=== PATIENT | female | born 1970 | race Caucasian/White ===

== ENCOUNTER → 2016-12-09 09:44 | Emergency (ER) | payer MEDICAID ==
[~2016-12-09 09:44] MED LIST: Metoclopramide IV* 5 MG/ML 2 ML VIAL IV ONE; Morphine INJ* 4 MG/ML 1 ML SYRINGE IV ONE; NS 0.9% 1000 ML* 1,000 ML IV ONE; Ondansetron INJ* 2 MG/ML VIAL IV ONE; Potassium Chlor TAB* 20 MEQ TAB.ER PO ONE
[2016-12-09] MEDS: NS 0.9% 1000 ML* 2,000 ML IV ONE ×2 (11:03→13:12)
[2016-12-09 11:36] LABS: Hematocrit 37 % (35-47); Hemoglobin 12.4 g/dl (12.0-16.0); Mean Corpuscular HGB Conc 34 g/dl (31-36); Mean Corpuscular Hemoglobin 28 pg (27-31); Mean Corpuscular Volume 84 fL (80-97); Mean Platelet Volume 8 um3 (7.4-10.4); Red Blood Count 4.39 10^6/ul (4.0-5.4); Red Cell Distribution Width 16 % (10.5-15); White Blood Count 8.6 10^3/ul (3.5-10.8)
[2016-12-09 11:54] LABS: Albumin 4.4 g/dL (3.2-5.2); BUN/Creatinine Ratio 24.1 (8-20); C Reactive Protein 25.28 mg/L (< 5.00); Calcium 10.3 mg/dL (8.6-10.3); EGFR African American 100.8 (>60); EGFR Non-African American 78.3 (>60); Globulin 4.1 g/dL (2-4); Potassium 3.2 mmol/L (3.5-5.0); Total Bilirubin 0.6 mg/dL (0.2-1.0); Total Protein 8.5 g/dL (6.4-8.9)
[2016-12-09 12:55] LABS: Urine Bacteria Absent (Absent); Urine Bilirubin Negative (Negative); Urine Glucose Negative (Negative); Urine Nitrite Negative (Negative)
[2016-12-09 13:56] VITALS: BP 156/76
--- NOTE | 2016-12-13 10:52 | ED ---
Dora Chan Thomas, scribed for Sherman Mckeon MD on 12/09/16 at 1053 . Abdominal Pain/Female - HPI Summary HPI Summary: Pt is a 46 y/o F with a Hx of chemotherapy presents to the ED with severe vomiting. Sx began 24 hours ago and she is unable to keep food or fluids down. Additionally c/o abd pain, diarrhea, myalgia, chillls, palpitations (racing heart), and dry cough. She has a Hx of breast cancer with mets to lymph nodes, spine, and liver. Her last chemotherapy was 2 weeks ago and reports nausea -- nml per pt -- but this with this episode also has vomiting. She attributes her diarrhea to a "double dose" of milk of magnesia following constipation that lasted five days. - History of Current Complaint Chief Complaint: EDAbdPain Stated Complaint: VOMITING, ABD PAIN, Time Seen by Provider: 12/09/16 09:58 Hx Obtained From: Patient Hx Last Menstrual Period: last year stopped after chemo ?: No Timing: Hours - 24 hours Severity Initially: Moderate Severity Currently: Moderate Pain Intensity: 7 Pain Scale Used: 0-10 Numeric Radiates: No Aggravating Factor(s): Food Alleviating Factor(s): Nothing Associated Signs and Symptoms: Positive: Cough - cough, Nausea, Vomiting, Diarrhea, Other: - POS: myalgia, palpitations ("racing heart") Allergies/Adverse Reactions: Allergies Allergy/AdvReac Type Severity Reaction Status Date / Time No Known Allergies Allergy Verified 12/10/16 13:16 Home Medications: Home Medications Morphine TAB (NF) [Morphine 30 MG TAB (NF)] 30 mg PO Q4HR PRN 12/09/16 [History Confirmed 12/09/16] PMH/Surg Hx/FS Hx/Imm Hx Endocrine/Hematology History: Reports: Hx Anemia - MANY TIMES IN HER LIFE Denies: Hx Blood Disorders, Hx Blood Transfusions, Hx Diabetes, Hx Systemic Lupus Erythematosus, Hx Thyroid Disease Cardiovascular History: Reports: Hx Hypercholesterolemia Denies: Hx Congestive Heart Failure, Hx Hypertension, Hx Pacemaker/ICD Comment Only: Other Cardiovascular Problems/Disorders - HX PLEURISY Respiratory History: Reports: Other Respiratory Problems/Disorders - PLEURISY 04/2012, Sx RESOVED EXCEPT MILD DULL DISCOMFORT LEFT POSTERIOR CH Denies: Hx Asthma, Hx Chronic Obstructive Pulmonary Disease (COPD) GI History: Reports: Hx Gastroesophageal Reflux Disease - NO Sx SINCE HAVING HIATAL HERNIA REPAIRED 2009, Hx Hiatal Hernia - SURGERY 2009, Hx Ulcer - bleeding gastric ulcer history, Other GI Disorders - hiatial hernia repair History: Denies: Hx Dialysis, Hx Renal Disease Musculoskeletal History: Reports: Other Musculoskeletal History - back pain, ca of spine Denies: Hx Rheumatoid Arthritis Sensory History: Denies: Hx Contacts or Glasses, Hx Hearing Aid Opthamlomology History: Denies: Hx Contacts or Glasses Neurological History: Reports: Hx Headaches Psychiatric History: Reports: Hx Anxiety - TAKES KLONOPIN PRN, USUALLY 1-2/WK, Hx Depression Denies: Hx Panic Disorder - Cancer History Cancer Type, Location and Year: BREAST CANCER WITH METS TO SPINE Hx Chemotherapy: Yes Hx Radiation Therapy: Yes - DX OF BONE CANCER IN SPINE 2 YRS AGO, ADDITIONAL RADIATION - Surgical History Surgery Procedure, Year, and Place: LYMPH NODES-REMOVED RIGHT BREAST-BILATERAL CARPAL TUNNEL-LEFT ANKLE FX PINS REMOVED-RIGHT BREAST LUMPECTOMY 10/01-PORT PLACEMENT AND REMOVAL-NEW PORT PLACED-HYSTERECTOMY 06/03-HIATAL HERNIA REPAIR 2008-BIOPSY LYMPH NODES IN CHEST CAVITY Hx Anesthesia Reactions: Yes - 2008 DURING H.H. REPAIR, STOPPED PROCEDURE Infectious Disease History: Denies: Hx Clostridium Difficile, Hx Hepatitis, Hx Human Immunodeficiency Virus (HIV), Hx of Known/Suspected MRSA, Hx Shingles, Hx Tuberculosis, Hx Known/ Suspected VRE, Hx Known/Suspected VRSA, History Other Infectious Disease, Traveled Outside the [place] in Last 30 Days - Family History Known Family History: Positive: Cardiac Disease, Other - CA, lung - Social History Alcohol Use: None Alcohol Amount: 1-4 on a drinking day every few weeks Substance Use Type: Reports: None Smoking Status (MU): Former Smoker Type: eCigarettes Amount Used/How Often: smokes ecigarettes without nicotine Have You Smoked in the Last Year: Yes - ecig Review of Systems Positive: Chills Eyes: Negative ENT: Negative Positive: Palpitations - ("heart racing") Positive: Cough - dry Positive: Abdominal Pain, Vomiting, Diarrhea, Nausea Genitourinary: Negative Positive: Myalgia Skin: Negative Neurological: Negative Psychological: Normal All Other Systems Reviewed And Are Negative: Yes Physical Exam - Summary Physical Exam Summary: VITAL SIGNS: Reviewed. GENERAL: Patient is a well-developed female who is lying comfortable in the stretcher. Patient is not in any acute respiratory distress. HEAD AND FACE: Normocephalic and atraumatic. EYES: PERRLA, EOMI x 2, No injected conjunctiva. EARS: Hearing grossly intact. Ear canals and tympanic membranes are WNL. MOUTH: Oropharynx within normal limits. NECK: Supple, trachea is midline, no adenopathy, no JVD. CHEST: Symmetric, no tenderness at palpation LUNGS: Clear to auscultation bilaterally. No wheezing or crackles. CVS: RRR, S1 and S2 present, no murmurs or gallops appreciated. ABDOMEN: Soft, non-tender. No signs of distention. Positive bowel sounds. No rebound no guarding, and no masses palpated. No abdominal bruit or pulsations. EXTREMITIES: FROM in all major joints, no edema, no cyanosis or clubbing. NEURO: Alert and oriented x 3. No acute neurological deficits. Speech is normal. SKIN: Dry and warm Triage Information Reviewed: Yes Vital Signs On Initial Exam: Initial Vitals Temp Pulse Resp BP Pulse Ox 98.3 F 87 18 127/76 99 12/09/16 09:47 12/09/16 09:47 12/09/16 09:47 12/09/16 09:47 12/09/16 09:47 Vital Signs Reviewed: Yes Diagnostics - Vital Signs Vital Signs Temp Pulse Resp BP Pulse Ox 12/09/16 09:47 98.3 F 87 18 127/76 99 - Laboratory Lab Results: Lab Results 12/09/16 12/09/16 12/09/16 Range/Units 11:12 11:12 11:12 WBC 8.6 (3.5-10.8) 10^3/ul RBC 4.39 (4.0-5.4) 10^6/ul Hgb 12.4 (12.0-16.0) g/dl Hct 37 (35-47) % MCV 84 (80-97) fL MCH 28 (27-31) pg MCHC 34 (31-36) g/dl RDW 16 H (10.5-15) % Plt Count 328 (150-450) 10^3/ul MPV 8 (7.4-10.4) um3 Neut % (Auto) 78.6 (38-83) % Lymph % (Auto) 12.7 L (25-47) % [place] % (Auto) 8.5 (1-9) % Eos % (Auto) 0 (0-6) % Baso % (Auto) 0.2 (0-2) % Absolute Neuts (auto) 6.8 (1.5-7.7) 10^3/ul Absolute Lymphs (auto) 1.1 (1.0-4.8) 10^3/ul Absolute Monos (auto) 0.7 (0-0.8) 10^3/ul Absolute Eos (auto) 0 (0-0.6) 10^3/ul Absolute Basos (auto) 0 (0-0.2) 10^3/ul Absolute Nucleated RBC 0.01 10^3/ul Nucleated RBC % 0.1 Sodium 133 (133-145) mmol/L Potassium 3.2 L (3.5-5.0) mmol/L Chloride 93 L (101-111) mmol/L Carbon Dioxide 27 (22-32) mmol/L Anion Gap 13 H (2-11) mmol/L BUN 19 (6-24) mg/dL Creatinine 0.79 (0.51-0.95) mg/dL Est GFR ( Amer) 100.8 (>60) Est GFR (Non-Af Amer) 78.3 (>60) BUN/Creatinine Ratio 24.1 H (8-20) Glucose 102 H (70-100) mg/dL Lactic Acid 1.3 (0.5-2.0) mmol/L Calcium 10.3 (8.6-10.3) mg/dL Magnesium 2.0 (1.9-2.7) mg/dL Total Bilirubin 0.60 (0.2-1.0) mg/dL AST 93 H (13-39) U/L ALT 36 (7-52) U/L Alkaline Phosphatase 205 H (34-104) U/L C-Reactive Protein 25.28 H (< 5.00) mg/L Total Protein 8.5 (6.4-8.9) g/dL Albumin 4.4 (3.2-5.2) g/dL Globulin 4.1 H (2-4) g/dL Albumin/Globulin Ratio 1.1 (1-3) Amylase 66 (29-103) U/L Lipase 56 (11.0-82.0) U/L Urine Color Urine Appearance Urine pH (5-9) Ur Specific [place] (1.010-1.030) Urine Protein (Negative) Urine Ketones (Negative) Urine Blood (Negative) Urine Nitrate (Negative) Urine Bilirubin (Negative) Urine Urobilinogen (Negative) Ur Leukocyte Esterase (Negative) Urine WBC (Auto) (Absent) Urine RBC (Auto) (Absent) Urine Bacteria (Absent) Hyaline Casts (Absent) Urine Glucose (Negative) 12/09/16 Range/Units 12:25 WBC (3.5-10.8) 10^3/ul RBC (4.0-5.4) 10^6/ul Hgb (12.0-16.0) g/dl Hct (35-47) % MCV (80-97) fL MCH (27-31) pg MCHC (31-36) g/dl RDW (10.5-15) % Plt Count (150-450) 10^3/ul MPV (7.4-10.4) um3 Neut % (Auto) (38-83) % Lymph % (Auto) (25-47) % [place] % (Auto) (1-9) % Eos % (Auto) (0-6) % Baso % (Auto) (0-2) % Absolute Neuts (auto) (1.5-7.7) 10^3/ul Absolute Lymphs (auto) (1.0-4.8) 10^3/ul Absolute Monos (auto) (0-0.8) 10^3/ul Absolute Eos (auto) (0-0.6) 10^3/ul Absolute Basos (auto) (0-0.2) 10^3/ul Absolute Nucleated RBC 10^3/ul Nucleated RBC % Sodium (133-145) mmol/L Potassium (3.5-5.0) mmol/L Chloride (101-111) mmol/L Carbon Dioxide (22-32) mmol/L Anion Gap (2-11) mmol/L BUN (6-24) mg/dL Creatinine (0.51-0.95) mg/dL Est GFR ( Amer) (>60) Est GFR (Non-Af Amer) (>60) BUN/Creatinine Ratio (8-20) Glucose (70-100) mg/dL Lactic Acid (0.5-2.0) mmol/L Calcium (8.6-10.3) mg/dL Magnesium (1.9-2.7) mg/dL Total Bilirubin (0.2-1.0) mg/dL AST (13-39) U/L ALT (7-52) U/L Alkaline Phosphatase (34-104) U/L C-Reactive Protein (< 5.00) mg/L Total Protein (6.4-8.9) g/dL Albumin (3.2-5.2) g/dL Globulin (2-4) g/dL Albumin/Globulin Ratio (1-3) Amylase (29-103) U/L Lipase (11.0-82.0) U/L Urine Color Yellow Urine Appearance Clear Urine pH 6.0 (5-9) Ur Specific [place] 1.019 (1.010-1.030) Urine Protein 2+(100 mg/dl) H (Negative) Urine Ketones 2+ H (Negative) Urine Blood Negative (Negative) Urine Nitrate Negative (Negative) Urine Bilirubin Negative (Negative) Urine Urobilinogen Negative (Negative) Ur Leukocyte Esterase Negative (Negative) Urine WBC (Auto) Trace(0-5/hpf) (Absent) Urine RBC (Auto) 2+(6-10/hpf) H (Absent) Urine Bacteria Absent (Absent) Hyaline Casts Present H (Absent) Urine Glucose Negative (Negative) Result Diagrams: 12/09/16 11:12 12/09/16 11:12 Lab Statement: Any lab studies that have been ordered have been reviewed, and results considered in the medical decision making process. Abdominal Pain Fem Course/Dx - Course Course Of Treatment: The patient is a 46 y/o F with a Hx of chemotherapy presenting to the ED with severe vomiting. Her symptoms began 24 hours ago and she is unable to keep food or fluids down. Additionally she complains of abd pain, diarrhea, myalgia, chills, palpitations (described as racing heart), and dry cough. She has a Hx of breast cancer with mets to lymph nodes, spine, and liver. Her last chemotherapy was 2 weeks ago and reports nausea -- nml per pt -- but this with this episode also has vomiting. She attributes her diarrhea to a "double dose" of milk of magnesia following constipation that lasted five days. Test results were within normal limits except potassium 3.2, CRP 25.28. UA did not show UTI. In the ED course, the patient was given 2L of IV fluids, Zofran, and Reglan. The patient symptoms have improved, however still slightly nauseous. The case was discussed with Dr. Ngo from oncology, who recommended that the patient be discharged to his office. He will reassess patient and make a decision to send the patient home or admit. The plan was discussed with the patient, who agrees and understands. Therefore, the patient was discharged. - Diagnoses Differential Diagnosis: Positive: Constipation, Diverticulitis, Irritable Bowel Syndrome Provider Diagnoses: Nausea & vomiting - Provider Notifications Discussed Care Of Patient With: Paulo Ngo Time Discussed With Above Provider: 13:10 - Oncology, recommended that the patient visit his office today. Instructed by Provider To: Other Discharge - Discharge Plan Condition: Stable Disposition: OTHER Discharge Disposition Comment: Dr. Ngo office Patient Education Materials: Acute Nausea and Vomiting (ED) Referrals: Fredi Ceja MD [Primary Care Provider] - Paulo Ngo MD [Medical Doctor] - (PLEASE SEE DR. NGO IN HIS OFFICE TODAY.) The documentation as recorded by the Dora osullivan Thomas accurately reflects the service I personally performed and the decisions made by me, Sherman Mckeon MD.
== END ==
LOC: ED 09:44
DX: R11.2 Nausea with vomiting, unspecified (principal); R05 Cough; R19.7 Diarrhea, unspecified; R00.2 Palpitations
CPT/HCPCS: 36415; 80053; 81003; 81015; 82150; 83605; 83690; 83735; 85025; 86140; 96374; 96375; 99283; A9270-GY; J2270; J2405

== ENCOUNTER 2016-12-09 14:00 | Inpatient (IN) | payer MEDICAID ==
[2016-12-09] MEDS ORDERED: Polyethylene Glycol 3350* 17 GM PACKET PO PRN (15:47)
[2016-12-09] MEDS ORDERED: Morphine ORAL.SOLN 10 mg* 2 MG/ML UDC 5 ml PO PRN (15:49)
[2016-12-09] MEDS ORDERED: clonazePAM TAB(*) 0.5 MG PO PRN (15:49)
[2016-12-09] MEDS ORDERED: oxyCODONE TAB* 5 MG TAB PO PRN (15:50)
[2016-12-09] MEDS: Metoclopramide IV* 5 MG/ML 2 ML VIAL IV SCH ×2 (16:35→23:15)
[2016-12-09] MEDS: Enoxaparin(*) 40 MG/0.4 ML SYR SUBCUT SCH (16:35)
[2016-12-09] MEDS: Ondansetron INJ* 2 MG/ML VIAL IV SCH ×2 (16:35→20:43)
[2016-12-09] MEDS: NS 0.9% w/ 20 Meq KCL 1000 ML* 1,000 ML IV SCH (16:35)
[2016-12-09] MEDS: LORazepam INJ* 2 MG/ML 1 ML VIAL IV PUSH PRN (19:41)
[2016-12-09] MEDS: Morphine INJ* 10 MG/ML 1 ML SYRINGE IV PRN (20:06)
[2016-12-10] MEDS: Ondansetron INJ* 2 MG/ML VIAL IV SCH ×6 (00:24→19:15)
[2016-12-10] MEDS: Metoclopramide IV* 5 MG/ML 2 ML VIAL IV SCH ×4 (04:01→21:23)
[2016-12-10] MEDS: Morphine INJ* 10 MG/ML 1 ML SYRINGE IV PRN ×3 (05:28→19:15)
[2016-12-10 06:04] LABS: Hematocrit 33 % (35-47); Hemoglobin 10.9 g/dl (12.0-16.0); Mean Corpuscular HGB Conc 33 g/dl (31-36); Mean Corpuscular Hemoglobin 28 pg (27-31); Mean Corpuscular Volume 86 fL (80-97); Mean Platelet Volume 7 um3 (7.4-10.4); Red Blood Count 3.84 10^6/ul (4.0-5.4); Red Cell Distribution Width 17 % (10.5-15); White Blood Count 6.2 10^3/ul (3.5-10.8)
[2016-12-10 06:28] LABS: Albumin 3.6 g/dL (3.2-5.2); BUN/Creatinine Ratio 14.6 (8-20); Calcium 8.6 mg/dL (8.6-10.3); EGFR African American 96.5 (>60); EGFR Non-African American 75.1 (>60); Globulin 3.4 g/dL (2-4); Potassium 3.8 mmol/L (3.5-5.0); Total Bilirubin 0.5 mg/dL (0.2-1.0)
[2016-12-10] MEDS: NS 0.9% w/ 20 Meq KCL 1000 ML* 1,000 ML IV SCH ×2 (08:05→21:21)
[2016-12-10] MEDS: LORazepam INJ* 2 MG/ML 1 ML VIAL IV PUSH PRN ×2 (13:00→19:36)
[2016-12-10] MEDS ORDERED: Iohexol 300* (CONTRAST) 10 ML SDV IV ONE (13:15)
--- NOTE | 2016-12-10 13:57 | RAD ---
Indication: Liver metastases. Nausea and vomiting with abdominal pain. Contrast: Administered 60.1 ml of OMNIPAQUE 300 mg/ml. CT of the abdomen and pelvis was performed after oral and IV contrast administration. Coronal and sagittal reconstructed images were obtained. Lung bases demonstrate right pleural effusion. Heart demonstrates no pericardial effusion. The liver is is enlarged. Multiple enhancing lesions are noted consistent with metastatic disease in both lobes of the liver. The lesion in the dome of the liver has slightly increased in size. Innumerable other ring-enhancing lesions are noted in both lobes of the liver consistent with metastatic disease. This appears to BE slightly progressive when compared to previous exam. Gallbladder demonstrates no calcified gallstones. Small amount of pericholecystic fluid is identified. Spleen is normal in size. Pancreas demonstrates no mass or pancreatic duct dilatation. Common duct is not dilated. No adrenal lesions. The kidneys demonstrate symmetric nephrograms without hydronephrosis. Atherosclerotic aorta is noted. Interaortocaval lymph node measures up to 7 mm, left para-aortic lymph node measures up to 7 mm. This may be more prominent than on previous exam. Atherosclerotic aorta is noted. Small amount of free fluid is noted in the cul-de-sac. Small bowel demonstrates no abnormal dilatation. The colon is filled with stool. Diverticulosis without definite evidence of diverticulitis is noted. No hernias are noted. The stomach is partially collapsed. The bony structures demonstrate sclerotic lesions at multiple levels including L5, L2 and T12. This is consistent with bony metastatic disease. IMPRESSION: Progressive bilobar liver hepatic metastases. Increasing ascites and right pleural effusion is noted of small size. Extensive bony metastasis. No abnormally dilated loops of bowel are noted.
[2016-12-10] MEDS: Enoxaparin(*) 40 MG/0.4 ML SYR SUBCUT SCH (15:41)
[2016-12-11] MEDS: Morphine INJ* 10 MG/ML 1 ML SYRINGE IV PRN ×4 (00:50→21:38)
[2016-12-11] MEDS: Ondansetron INJ* 2 MG/ML VIAL IV SCH ×7 (00:52→23:54)
[2016-12-11] MEDS: Metoclopramide IV* 5 MG/ML 2 ML VIAL IV SCH ×4 (04:25→21:38)
[2016-12-11] MEDS: LORazepam INJ* 2 MG/ML 1 ML VIAL IV PUSH PRN ×2 (04:55→19:30)
[2016-12-11 06:33] LABS: Hematocrit 30 % (35-47); Mean Corpuscular HGB Conc 33 g/dl (31-36); Mean Corpuscular Hemoglobin 28 pg (27-31); Mean Corpuscular Volume 86 fL (80-97); Mean Platelet Volume 8 um3 (7.4-10.4); Red Blood Count 3.53 10^6/ul (4.0-5.4); Red Cell Distribution Width 17 % (10.5-15); White Blood Count 4.6 10^3/ul (3.5-10.8)
[2016-12-11 06:48] LABS: Albumin 3.3 g/dL (3.2-5.2); BUN/Creatinine Ratio 10.4 (8-20); Calcium 8.2 mg/dL (8.6-10.3); EGFR African American 103.8 (>60); EGFR Non-African American 80.7 (>60); Potassium 3.6 mmol/L (3.5-5.0); Total Bilirubin 0.4 mg/dL (0.2-1.0); Total Protein 6.3 g/dL (6.4-8.9)
--- NOTE | 2016-12-11 11:04 | PN ---
Progress Note - Progress Note SOAP: Subjective: still very nauseous. no vomiting, but only drinking ensure clears. interested in trying to advance her diet. +hiccups. no headaches but increased ocular migraines. Objective: Vital Signs Temp Pulse Resp BP Pulse Ox 97.6 F 84 16 103/77 99 12/11/16 04:06 12/11/16 04:06 12/11/16 06:16 12/11/16 04:06 12/11/16 04:06 perr eomi op moist CTA bl s1 s2 nl soft palpable tumor RUQ, tender no le edema A+O x 3, nonfocal neurological exam Laboratory Results - last 24 hr 12/11/16 12/11/16 05:10 05:10 WBC 4.6 RBC 3.53 L Hgb 10.0 L Hct 30 L MCV 86 MCH 28 MCHC 33 RDW 17 H Plt Count 226 MPV 8 Neut % (Auto) 63.4 Lymph % (Auto) 25.3 [place] % (Auto) 10.1 H Eos % (Auto) 0.6 Baso % (Auto) 0.6 Absolute Neuts (auto) 2.9 Absolute Lymphs (auto) 1.2 Absolute Monos (auto) 0.5 Absolute Eos (auto) 0 Absolute Basos (auto) 0 Absolute Nucleated RBC 0.01 Nucleated RBC % 0.1 Sodium 132 L Potassium 3.6 Chloride 103 Carbon Dioxide 24 Anion Gap 5 BUN 8 Creatinine 0.77 Est GFR ( Amer) 103.8 Est GFR (Non-Af Amer) 80.7 BUN/Creatinine Ratio 10.4 Glucose 85 Calcium 8.2 L Total Bilirubin 0.40 AST 59 H ALT 26 Alkaline Phosphatase 133 H Total Protein 6.3 L Albumin 3.3 Globulin 3.0 Albumin/Globulin Ratio 1.1 Clonazepam (Klonopin Tab(*)) 0.5 mg PO TID PRN PRN Reason: AGITATION/ANXIETY/INSOMNIA Enoxaparin Sodium (Lovenox(*)) 40 mg SUBCUT Q24H MYRA Last Admin: 12/10/16 15:41 Dose: 40 mg Heparin Sodium (Porcine) (Heparin Flush Port (Ivad)) 5 ml FLUSH DAILY MYRA PRN Reason: Protocol Last Admin: 12/11/16 08:40 Dose: Not Given Potassium Chloride/Sodium Chloride (Ns 0.9% W/ 20 Meq Kcl 1000 Ml*) 1,000 mls @ 75 mls/hr IV PER RATE [facility] Last Admin: 12/10/16 21:21 Dose: 75 mls/hr Famotidine 20 mg/ Sodium (Chloride) 102 mls @ 408 mls/hr IVPB DAILY [facility] Last Admin: 12/11/16 08:46 Dose: 408 mls/hr Lorazepam (Ativan Inj*) 0.5 mg IV PUSH Q4H PRN PRN Reason: Nausea/Vomiting, intractable Last Admin: 12/11/16 04:55 Dose: 0.5 mg Metoclopramide HCl (Reglan Iv*) 10 mg IV Q6H MYRA Last Admin: 12/11/16 08:46 Dose: 10 mg Morphine Sulfate (Morphine Oral.Soln 10 Mg*) 30 mg PO Q4H PRN PRN Reason: PAIN Morphine Sulfate (Morphine Inj (Syringe)*) 5 mg IV Q6H PRN PRN Reason: PAIN Last Admin: 12/11/16 06:16 Dose: 5 mg Ondansetron HCl (Zofran Inj*) 4 mg IV Q4H [facility] Last Admin: 12/11/16 08:46 Dose: 4 mg Oxycodone HCl (Roxycodone Tab*) 10 mg PO Q4H PRN PRN Reason: PAIN Polyethylene Glycol/Electrolytes (Miralax*) 17 gm PO 0800,2100 PRN PRN Reason: CONSTIPATION Assessment: 46 yo F w metastatic breast cancer on palliative Doxil admitted with nausea and vomiting. Her CT, which I have personally reviewed, does show progression of her disease. It is not marked, however one would have hoped for some regression of her liver mets from two cycles rather than growth. In terms of her nausea and vomiting, it may very well be the metastatic abdominal disease, with irritation of her diaphragm, however I am concerned that this could be [employer] disease. Plan: -MRI of the brain in the am (had IV contrast yesterday) -advance diet per her request -cont current antiemetics -cont IVFs with kcl (hyponatremia likely related to GI loss) -lovenox DVT prophylaxis
[2016-12-11] MEDS: NS 0.9% w/ 20 Meq KCL 1000 ML* 1,000 ML IV SCH (12:38)
[2016-12-11] MEDS: Enoxaparin(*) 40 MG/0.4 ML SYR SUBCUT SCH (16:20)
[2016-12-12] MEDS: NS 0.9% w/ 20 Meq KCL 1000 ML* 1,000 ML IV SCH (01:52)
[2016-12-12] MEDS: Ondansetron INJ* 2 MG/ML VIAL IV SCH ×2 (03:55→08:28)
[2016-12-12] MEDS: Metoclopramide IV* 5 MG/ML 2 ML VIAL IV SCH ×2 (04:14→09:47)
[2016-12-12] MEDS: Morphine INJ* 10 MG/ML 1 ML SYRINGE IV PRN (04:15)
[2016-12-12 04:26] LABS: Hematocrit 32 % (35-47); Hemoglobin 10.3 g/dl (12.0-16.0); Mean Corpuscular HGB Conc 33 g/dl (31-36); Mean Corpuscular Hemoglobin 28 pg (27-31); Mean Corpuscular Volume 86 fL (80-97); Mean Platelet Volume 7 um3 (7.4-10.4); Red Blood Count 3.69 10^6/ul (4.0-5.4); Red Cell Distribution Width 17 % (10.5-15); White Blood Count 4.8 10^3/ul (3.5-10.8)
[2016-12-12 04:37] LABS: Albumin 3.3 g/dL (3.2-5.2); BUN/Creatinine Ratio 9.2 (8-20); Calcium 8.5 mg/dL (8.6-10.3); EGFR African American 105.4 (>60); EGFR Non-African American 81.9 (>60); Globulin 3.2 g/dL (2-4); Total Bilirubin 0.3 mg/dL (0.2-1.0); Total Protein 6.5 g/dL (6.4-8.9)
[2016-12-12] MEDS ORDERED: Famotidine IV* 10 MG/ML 2 ML (20 mg) ONE (08:16)
[2016-12-12] MEDS: LORazepam INJ* 2 MG/ML 1 ML VIAL IV PUSH PRN ×2 (08:51→15:50)
[2016-12-12] MEDS ORDERED: Ondansetron INJ* 2 MG/ML VIAL IV PRN (10:13)
--- NOTE | 2016-12-12 11:20 | PN ---
Progress Note - Progress Note SOAP: Subjective: []Continued nausea without vomiting. Meds work. Very anxious about potential home today as she is worried. Remains very cheerful. MRI due today @ 3pm d/t contrast from CT can't do in AM. Denies headaches and vision changes. Still very full stomach. Last BM Mon. 12/02 (/c MOM), though low intake since. Did tolerate soft foods today. Medications: Clonazepam (Klonopin Tab(*)) 0.5 mg PO TID PRN PRN Reason: AGITATION/ANXIETY/INSOMNIA Enoxaparin Sodium (Lovenox(*)) 40 mg SUBCUT Q24H MYRA Last Admin: 12/11/16 16:20 Dose: 40 mg Heparin Sodium (Porcine) (Heparin Flush Port (Ivad)) 5 ml FLUSH DAILY MYRA PRN Reason: Protocol Last Admin: 12/12/16 10:48 Dose: 5 ml Famotidine 20 mg/ Sodium (Chloride) 102 mls @ 408 mls/hr IVPB DAILY MYRA Last Admin: 12/12/16 08:51 Dose: 408 mls/hr Lorazepam (Ativan Inj*) 0.5 mg IV PUSH Q4H PRN PRN Reason: Nausea/Vomiting, intractable Last Admin: 12/12/16 08:51 Dose: 0.5 mg Metoclopramide HCl (Reglan Tab*) 10 mg PO Q8H MYRA Morphine Sulfate (Morphine Oral.Soln 10 Mg*) 30 mg PO Q4H PRN PRN Reason: PAIN Morphine Sulfate (Morphine Inj (Syringe)*) 5 mg IV Q6H PRN PRN Reason: PAIN Last Admin: 12/12/16 04:15 Dose: 5 mg Ondansetron HCl (Zofran Odt Tab*) 4 mg SL Q4HR PRN PRN Reason: NAUSEA/VOMITING Ondansetron HCl (Zofran Inj*) 4 mg IV Q4H PRN PRN Reason: NAUSEA Oxycodone HCl (Roxycodone Tab*) 10 mg PO Q4H PRN PRN Reason: PAIN Polyethylene Glycol/Electrolytes (Miralax*) 17 gm PO 0800,2100 PRN PRN Reason: CONSTIPATION Objective: [] Vital Signs Temp Pulse Resp BP Pulse Ox 97.8 F 74 18 119/81 99 12/12/16 07:43 12/12/16 07:43 12/12/16 09:49 12/12/16 07:43 12/12/16 07:43 A&Ox3, EOMI, PERRLA, SANDOVAL, ambulates well HRR, S1S2, no murmur LS clear with occ. insp. wheeze, resp. even and non-labored +BS, abd. soft and non-tender Hepatomegaly /c tumor palpable /c some tenderness +PP=bilat., no edema Laboratory Results - last 24 hr 12/12/16 12/12/16 04:10 04:10 WBC 4.8 RBC 3.69 L Hgb 10.3 L Hct 32 L MCV 86 MCH 28 MCHC 33 RDW 17 H Plt Count 231 MPV 7 L Neut % (Auto) 60.0 Lymph % (Auto) 27.7 [place] % (Auto) 10.9 H Eos % (Auto) 0.6 Baso % (Auto) 0.8 Absolute Neuts (auto) 2.9 Absolute Lymphs (auto) 1.3 Absolute Monos (auto) 0.5 Absolute Eos (auto) 0 Absolute Basos (auto) 0 Absolute Nucleated RBC 0 Nucleated RBC % 0.1 Sodium 137 Potassium 4.0 Chloride 107 Carbon Dioxide 25 Anion Gap 5 BUN 7 Creatinine 0.76 Est GFR ( Amer) 105.4 Est GFR (Non-Af Amer) 81.9 BUN/Creatinine Ratio 9.2 Glucose 86 Calcium 8.5 L Total Bilirubin 0.30 AST 62 H ALT 27 Alkaline Phosphatase 144 H Total Protein 6.5 Albumin 3.3 Globulin 3.2 Albumin/Globulin Ratio 1.0 Assessment: []46 yo f with metastatic breast cancer admitted with intractable N/V appearing to improving with IV mesd, though question of KITCHEN STEWARD process and MRI pending. Plan: []1. Attempt to transition to PO meds today 2. If MRI negative and cont.'s to tolerate PO will d/c this afternoon
[2016-12-12] MEDS: Metoclopramide TAB* 10 MG PO SCH ×2 (12:05→18:02)
[2016-12-12] MEDS: Ondansetron ODT TAB* 4 MG SL PRN (13:51)
[2016-12-12] MEDS: Enoxaparin(*) 40 MG/0.4 ML SYR SUBCUT SCH (15:52)
[2016-12-12] MEDS ORDERED: Gadoteridol* (CONTRAST) 279.3 MG/ML 10 ML IV ONE (16:13)
--- NOTE | 2016-12-12 17:32 | RAD ---
Indication: Nausea and vomiting. Sagittal and axial T1, axial T2, FLAIR, diffusion and susceptibility weighted images of the brain were obtained. There was suboptimal IV with only 4 mL of ProHance injected into the left antecubital fossa. There does not appear to be contrast in the vessels vessels. This will be treated as a noncontrast MRI. Ventricular structures are midline. No midline shift is noted. The extra-axial spaces are unremarkable. There is no evidence of intracranial mass or hemorrhage. No other high or low signal lesions identified. The FLAIR images demonstrates no evidence of vasogenic edema. Tiny focal area of increased signal is noted in the right centrum semiovale probably which was present previously and has not significantly changed. Mastoid air cells and paranasal sinuses are otherwise unremarkable. The sagittal images demonstrates bone marrow replacement in C2. I cannot totally exclude metastatic disease to the cervical spine. In addition there is decreased signal in the bone marrow in the clivus metastatic disease to the clivus is also not excluded. IMPRESSION: NONSPECIFIC FOCUS OF INCREASED SIGNAL HIGH IN THE RIGHT CENTRUM SEMIOVALE IN THE FRONTAL LOBE WHICH IS UNCHANGED FROM PREVIOUS EXAM. THERE IS BONE MARROW REPLACEMENT IN THE C2 VERTEBRA CONSISTENT WITH METASTATIC DISEASE TO C2. ADDITIONALLY THERE IS DECREASED SIGNAL IN THE CLIVUS AND METASTATIC DISEASE TO THE CLIVUS IS NOT EXCLUDED. CORRELATION WITH BONE SCAN MAY BE HELPFUL. THERE IS POOR CONTRAST INJECTION AND THE CONTRAST PORTION OF THE STUDY SHOULD BE REPEATED WHEN INTRAVENOUS ACCESS IS ESTABLISHED.
[2016-12-13] MEDS: Metoclopramide TAB* 10 MG PO SCH ×2 (03:22→10:01)
[2016-12-13] MEDS: Ondansetron ODT TAB* 4 MG SL PRN (08:05)
[2016-12-13 13:08] VITALS: BP 112/79
--- NOTE | 2016-12-13 13:28 | RAD ---
Indication: Breast cancer. 9 mL of ProHance was injected. Postcontrast sagittal, axial and coronal T1-weighted postcontrast images were obtained. Ventricular structures are midline. No midline shift is noted. The extra-axial spaces are otherwise unremarkable. No abnormally enhancing lesions are noted within the brain. There is enhancement of the clivus the C2 vertebra consistent with enhancing metastatic disease. IMPRESSION: No enhancing lesions are noted in the brain. Bone marrow replacement in the clivus and the C2 vertebra consistent with metastatic disease as previously described.
--- NOTE | 2016-12-14 09:31 | DS ---
DISCHARGE SUMMARY: DATE OF ADMISSION: DATE OF DISCHARGE: 12/13/16 DISCHARGE DIAGNOSES: 1. Nausea and vomiting: Related to extensive hepatic metastases, improved. 2. Pain: Controlled on the patient's home meds. 3. Metastatic breast cancer: Concerning for continued progression, we will follow up as outpatient . DISCHARGE MEDICATIONS: 1. Metoclopramide 10 mg p.o. a.c. t.i.d. 2. MiraLAX 17 g p.o. b.i.d. p.r.n. constipation. 3. Oxycodone 5 to 10 mg p.o. q.4 to 6 hours p.r.n. pain. 4. Clonazepam 0.5 mg p.o. t.i.d. p.r.n. anxiety, agitation/insomnia. 5. Omeprazole 40 mg p.o. q.a.m. 6. Multivitamin one tab daily. 7. Alprazolam 0.5 mg p.o. q.6 hours p.r.n. anxiety. 8. Iron complex one tab p.o. daily. 9. Vitamin D 2000 units p.o. daily. 10. Ondansetron 4 mg p.o. q.6 hours p.r.n. nausea. 11. Vitamin C 1000 mg p.o. daily. 12. Morphine 30 mg p.o. q.4 hours p.r.n. pain. HOSPITAL COURSE: Please see admission note for full H and P; however, briefly, Ms. Caceres is well k nown to our service due to her unfortunate diagnosis of metastatic breast cancer, with extensive pro gression over the last year. She has received multiple lines of therapy. Most recently receiving D oxil cycle 2 on 11/26/16. She presented to the ER on the a.m. of 12/09/16 with uncontrolled nausea and vomiting. She states that the night previous she had been very constipated and attempted to take MiraLAX and subsequently started throwing up and was not able to keep anything down. Workup in the ER was limited and the patient was transferred to our office for evaluation. In the office, Ms. Stephanie price was notably pale and frail and attempts at managing her nausea were unsuccessful. Subsequently she was admitted to the hospital for observation and IV pain medications. The following morning Ms Jessica Caceres was only minimally better having been controlled with close IV medications, subsequently a CT of the abdomen and pelvis was ordered. CT revealed progressive hepatic metastases with ascites, no abnormally dilated loops of bowels. The following day on the , she remained still very nause ous, but without emesis. She was drinking fluids and interested in advancing her diet. At that time , the decision was made to obtain MRI of the head as her nausea was poorly controlled and she had be en having increased ocular migraines over the last several months. However, MRI was not able to be o btained on that day due to the prior CT contrast. The following day MRI of the head was completed wi thout contrast due to IV access issues, initial report did not reveal any new lesions beyond known b angely mets. Initially, Ms. Caceres was planning to go home following her MRI; however, without contrast therefore a decision made to hold her overnight and obtain MRI with contrast in the a.m. This morn ing she received her MRI with contrast which revealed no evidence for metastasis. Ms. Caceres is fee ling very well at this time and states she feels she has managed well with p.o. medications both for pain and nausea. She states good understanding of managing her constipation and understands her na usea is likely related to the liver mets. Ms. Caceres is interested in what the next step will be in regards to plan of care for her breast cancer, stating good understanding that a change in chemothe rapy may be indicated. She will follow up with our office on 12/19 to discuss options. At this elise e, Ms. Caceres has been removed from work until further notice due to her fatigue and multiple sympto ms related to both her disease and treatments. She is very much in agreement with this noting under standing of the process for disability. Plan of care was reviewed with Ms. Caceres at length and she states good understanding, denying further questions. TIME SPENT: Greater than 40 minutes spent with greater than 50% [id number] counselling. JIMENEZ LOPEZ, DIONI [id number]/[facility] #: [id number]
== END 2016-12-13 14:25 | disposition home or self-care (01) | DRG 281 ==
LOC: MED 14:00 → OBSVTOIN 12-11 14:00 → MED 12-12 18:23
PROVIDERS: ADMIT Internal Medicine Hematology & Oncology; ATTEND Internal Medicine Hematology & Oncology
DX: C78.7 Secondary malignant neoplasm of liver and intrahepatic bile duct (principal); E87.1 Hypo-osmolality and hyponatremia; R18.8 Other ascites; C50.919 Malignant neoplasm of unspecified site of unspecified female breast; G43.809 Other migraine, not intractable, without status migrainosus; F17.210 Nicotine dependence, cigarettes, uncomplicated; Z80.1 Family history of malignant neoplasm of trachea, bronchus and lung; Z90.710 Acquired absence of both cervix and uterus; Z82.49 Family history of ischemic heart disease and other diseases of the circulatory system
CPT/HCPCS: 36415; 70552; 70553; 74177; 80053; 83735; 85025; 99219; 99231; 99232; 99239; A9270-GY; A9579; G0378; J1642; J1650; J2060; J2270; J2405